=== PATIENT | male | born 1985 | race Caucasian/White ===

== ENCOUNTER 2021-01-13 18:25 | Emergency (ER) | payer BC, OTHER ==
[2021-01-13] MEDS ORDERED: Bupivacaine 0.25% 10 ML SDV INJECT ONE (18:40)
[2021-01-13] MEDS ORDERED: Cephalexin 250 MG Cap PO ONE (19:04)
--- NOTE | 2021-01-13 19:13 | EDM.PDOC ---
ED HPI GENERAL MEDICAL PROBLEM - General Chief Complaint: General Stated Complaint: hook in hand Time Seen by Provider: 01/13/21 18:30 Source of Information: Reports: Patient History Limitations: Reports: No Limitations - History of Present Illness INITIAL COMMENTS - FREE TEXT/NARRATIVE: 35-year-old male presents emergency room with a fishhook lodged into his left thumb. Patient was ice fishing earlier tonight for [employer] when fish hook released accidentally off the fish striking him in his left thumb. This was a triple barbed hook and was buried deep into his hand. He was able to cut the other 2 barbs off and now presents to the emergency room for removal. No other complaints are voiced he denies any numbness or tingling in his thumb. Onset: Today Duration: Minutes: Location: Reports: Upper Extremity, Left (Left thumb) Quality: Reports: Throbbing Severity: Mild Improves with: Reports: None Worsens with: Reports: Movement Context: Reports: Trauma (Fishing hook) Associated Symptoms: Reports: No Other Symptoms - Related Data Allergies Allergy/AdvReac Type Severity Reaction Status Date / Time procaine [From Novocain] Allergy Edema Verified 01/13/21 18:31 Home Meds: Home Meds . [No Known Home Meds] 01/13/21 [History] Social & Family History - Tobacco Use Tobacco Use Status *Q: Never Tobacco User - Caffeine Use Caffeine Use: Reports: Soda - Recreational Drug Use Recreational Drug Use: No ED ROS GENERAL - Review of Systems Review Of Systems: Comprehensive ROS is negative, except as noted in HPI. ED EXAM, GENERAL - Physical Exam Exam: See Below Exam Limited By: No Limitations General Appearance: Alert, WD/WN, No Apparent Distress Throat/Mouth: Normal Voice Head: Atraumatic Respiratory/Chest: No Respiratory Distress Extremities: Other (Left hand there is a barbed hook into the thenar eminence of the left thumb. The other 2 hooks were cut off by the patient. He has intact sensation to light touch.) Neurological: Alert, Oriented, No Motor/Sensory Deficits Psychiatric: Normal Affect Skin Exam: Warm, Dry, Intact, Normal Color ED GENERAL MEDICAL PROCEDURES - Additional/Other Procedure(s) Other (Free Text) Procedure(s): Left thumb barbed treble hook removal. Skin was prepped with Betadine and ChloraPrep was used after a 5 cc of quarter percent plain Marcaine was used anesthetize the skin around the inserted fishing hook. Needle-nose crew truck driver was then used to remove the hook without difficulty. ChloraPrep was used once again over the thumb pressure was used with a gauze and a Band-Aid was applied. Patient taught procedure well. None Course - Vital Signs Last Recorded V/S: Last Vital Signs Temp 97.6 F 01/13/21 18:32 Pulse 102 H 01/13/21 18:32 Resp 18 01/13/21 18:32 BP 132/72 01/13/21 18:32 Pulse Ox 98 01/13/21 18:32 - Orders/Labs/Meds Meds: Medications Discontinued Medications Generic Name Dose Route Start Last Admin Trade Name Wally PRN Reason Stop Dose Admin Bupivacaine HCl 10 ml 01/13/21 18:40 Bupivacaine 0.25% 10 Ml Sdv INJECT 01/13/21 18:41 ONETIME ONE Cephalexin 500 mg 01/13/21 19:04 Cephalexin 250 Mg Cap PO 01/13/21 19:05 ONETIME ONE - Re-Assessments/Exams Free Text/Narrative Re-Assessment/Exam: 01/13/21 19:12 Patient has no complaints tolerated removal of the fishing hook without any difficulty. Departure - Departure Time of Disposition: 19:13 Disposition: Home, Self-Care 01 Condition: Good Clinical Impression: Fishing hook foreign body Qualifiers: Encounter type: initial encounter Qualified Code(s): W45.8XXA - Other foreign body or object entering through skin, initial encounter - Discharge Information Instructions: Hand or Foot Foreign Body, Adult Referrals: Norma Gamez MD [Primary Care Provider] - Forms: ED Department Discharge Care Plan Goals: 1. Change Band-Aid as needed 2. Keflex 500 mg 1 p.o. 3 times daily #15 dispense. Patient was given 250 mg 2 tabs now at discharge 3. Follow-up with your primary care if any surrounding redness, drainage, purulence develops at the puncture site. Sepsis Event Note (ED) - Evaluation Sepsis Screening Result: No Definite Risk - Focused Exam Vital Signs: Vital Signs Temp Pulse Resp BP Pulse Ox 01/13/21 18:32 97.6 F 102 H 18 132/72 98 - Assessment/Plan Assessment:: Fishing hook left thumb Plan: 1. Change Band-Aid as needed 2. Keflex 500 mg 1 p.o. 3 times daily #15 dispense. Patient was given 250 mg 2 tabs now at discharge 3. Follow-up with your primary care if any surrounding redness, drainage, purulence develops at the puncture site.
== END 2021-01-13 19:19 | disposition home or self-care (01) ==
LOC: KA.ED 18:25
DX: S60.352A Superficial foreign body of left thumb, initial encounter (principal); Z88.4 Allergy status to anesthetic agent; W45.8XXA Other foreign body or object entering through skin, initial encounter
CPT/HCPCS: 10120; 99283; A9270-GY; J3490